=== PATIENT | female | born 1965 | race Caucasian/White ===

== ENCOUNTER 2017-03-24 13:17 | Emergency (ER) | payer SELFPAY ==
[2017-03-24] MEDS ORDERED: Dexamethasone 4 mg/ml Vial ONE (13:44)
[2017-03-24] MEDS ORDERED: Sulfameth/Trimethoprim DS 800-160mg TAB ONE (13:44)
== END 2017-03-24 13:52 | disposition home or self-care (01) ==
LOC: BURERS 13:17
DX: J01.90 Acute sinusitis, unspecified (principal); J06.9 Acute upper respiratory infection, unspecified; J44.9 Chronic obstructive pulmonary disease, unspecified; F17.210 Nicotine dependence, cigarettes, uncomplicated; F41.9 Anxiety disorder, unspecified; F32.9 Major depressive disorder, single episode, unspecified; Z79.899 Other long term (current) drug therapy
CPT/HCPCS: 99282; J1100

== ENCOUNTER 2017-08-07 06:08 | Emergency (ER) | payer SELFPAY | END 2017-08-07 07:16 | disposition home or self-care (01) | LOC: BURERS 06:08 | DX: J11.1 Influenza due to unidentified influenza virus with other respiratory manifestations (principal); J44.9 Chronic obstructive pulmonary disease, unspecified; F41.9 Anxiety disorder, unspecified; F32.9 Major depressive disorder, single episode, unspecified; F17.210 Nicotine dependence, cigarettes, uncomplicated; Z79.899 Other long term (current) drug therapy | CPT/HCPCS: 99283 ==

== ENCOUNTER 2017-08-09 10:20 | Emergency (ER) | payer SELFPAY | END 2017-08-09 11:41 | disposition home or self-care (01) | LOC: BURERS 10:20 | DX: J11.1 Influenza due to unidentified influenza virus with other respiratory manifestations (principal); J44.9 Chronic obstructive pulmonary disease, unspecified; F41.9 Anxiety disorder, unspecified; F32.9 Major depressive disorder, single episode, unspecified; F17.210 Nicotine dependence, cigarettes, uncomplicated; Z79.899 Other long term (current) drug therapy | CPT/HCPCS: 99283 ==

== ENCOUNTER 2019-07-19 07:41 | Emergency (ER) | payer SELFPAY ==
[2019-07-19] MEDS ORDERED: predniSONE 20 MG TAB ONE (08:09)
== END 2019-07-19 08:15 | disposition home or self-care (01) ==
LOC: BURERS 07:41
DX: J11.1 Influenza due to unidentified influenza virus with other respiratory manifestations (principal); J44.1 Chronic obstructive pulmonary disease with (acute) exacerbation; K21.9 Gastro-esophageal reflux disease without esophagitis; F41.9 Anxiety disorder, unspecified; F32.9 Major depressive disorder, single episode, unspecified; F17.210 Nicotine dependence, cigarettes, uncomplicated; Z79.899 Other long term (current) drug therapy
CPT/HCPCS: 99284; J7512

== ENCOUNTER 2022-10-08 10:43 | Emergency (ER) | payer OTHER ==
[2022-10-08] MEDS ORDERED: HYDROcodone/Acetaminophen 5/325 mg Tablet ONE (11:36)
== END 2022-10-08 13:38 | disposition home or self-care (01) ==
LOC: BURERS 10:43
DX: S13.4XXA Sprain of ligaments of cervical spine, initial encounter (principal); S06.0X0A Concussion without loss of consciousness, initial encounter; J44.9 Chronic obstructive pulmonary disease, unspecified; F17.210 Nicotine dependence, cigarettes, uncomplicated; V89.2XXA Person injured in unspecified motor-vehicle accident, traffic, initial encounter
CPT/HCPCS: 70450; 72125

== ENCOUNTER 2023-03-01 09:54 | Emergency (ER) | payer OTHER ==
[2023-03-01] MEDS ORDERED: predniSONE 20 MG TAB ONE (10:19)
[2023-03-01] MEDS ORDERED: Doxycycline 100 MG CAP ONE (10:19)
[2023-03-01] MEDS ORDERED: Ipratropium/Albuterol 3 ML NEB ONE (10:19)
== END 2023-03-01 10:52 | disposition home or self-care (01) ==
LOC: BURERS 09:54
DX: J22 Unspecified acute lower respiratory infection (principal); F17.210 Nicotine dependence, cigarettes, uncomplicated; I10 Essential (primary) hypertension; J44.9 Chronic obstructive pulmonary disease, unspecified; Z79.51 Long term (current) use of inhaled steroids
CPT/HCPCS: 71045; J7512; J7620